=== PATIENT | male | born 1970 | race Caucasian/White ===

== ENCOUNTER 2023-01-28 07:06 | Outpatient (CLI) | payer OTHER, SELFPAY ==
--- NOTE | 2023-01-28 07:15 | MR_ITS ---
[address] [address] Phone:?[phone] Fax:?[phone] Referring Physician Information: Alen Garnett [address] [facility] [address] Phone:?[phone] Fax:?[phone] Patient:Ledy Grider D.O.B:?1970 Sex:?Male Phone:?[phone] [facility] MRN:?[id number] Exam Date:?01/28/2023 ? EXAM: MRI of the RIGHT KNEE, without contrast CLINICAL INFORMATION: Male, 52 years old, with medial right knee pain. INDICATION: Evaluate for MCL or meniscal tear. PRIOR SURGERY: None reported. PLAIN FILMS: Knee radiographs dated 12/11/2022. COMPARISONS: No prior MRIs available. TECHNICAL INFORMATION: Using a 1.5T MR scanner and a localizing surface coil: sagittals: PD, PDFS coronals: PD, T2FS axials: PD, PDFS SEDATION: None CONTRAST: None FINDINGS: Knee joint: Effusion: Mild-moderate right knee effusion. Popliteal cyst: A medium-sized, inferiorly leaking popliteal (Bajwa's) cyst. Loose bodies: None. Subcutaneous and extra-articular soft tissues: Moderate anterior subcutaneous soft tissue swelling extending from the patella to the tibial tubercle (sagittal PDFS series 6 image 15). Ligaments: ACL: Intact ACL anteromedial and posterolateral bundles, without sprain or tear. PCL: Intact PCL, without acute or chronic injury. MCL: Mild thickening involving the proximal one third of the superficial MCL, without MCL tear. LCL: Intact LCL, without injury. Posterolateral corner: No posterolateral corner soft tissue injury. Popliteus, biceps femoris, iliotibial band, popliteofibular ligament and lateral gastrocnemius are intact. Posteromedial corner: No posteromedial corner soft tissue injury. Semimembranosus, pes anserine tendons and posterior oblique ligament are without injury, tendinopathy or bursitis. Extensor mechanism: Patellar tendon: Intact, without tendinopathy. Quadriceps tendon: Intact, without tendinopathy. Retinacula: Medial and lateral retinacula are intact. Fat pads: Unremarkable infrapatellar Hoffa's, quadriceps and prefemoral fat pads. Medial compartment: Medial meniscus: Complex degenerative tearing of the posterior horn and body is present over a length of 3.6 cm(sagittal PDFS series 6 images 23-27 and coronal STIR series 8 images 16-24). Meniscal extrusion measures 4 mm. No parameniscal cyst. An 8 x 4 x 8 mm flap fragment is located superior to the periphery of the body segment (coronal STIR series 8 image 18 and axial T2FS series 4 image 20). Medial femoral condyle & tibial plateau: Broad-based grade III chondromalacia throughout the central, weightbearing aspect of the medial compartment, with mild marginal osteophytosis and reactive osseous changes. Lateral compartment: Lateral meniscus: No articular surface, meniscosynovial junction or root tear. No displacement, extrusion or parameniscal cyst. Lateral femoral condyle: Broad-based mild grade II chondromalacia along the posterior surface of the lateral femoral condyle, with minimal subchondral edema (sagittal PDFS series 6 image 10 and axial T2FS series 4 image 12). Lateral tibial plateau: No chondromalacia or osteochondral abnormality. Patellofemoral joint: Patella: Bipartite patella with mild reactive osseous changes along the synchondrosis. There is generalized grade II chondromalacia of the patella and minimal marginal osteophytosis. Trochlea: Broad-based grade II/III chondromalacia of the medial facet and central sulcus, with mild reactive osseous changes and marginal osteophytosis. Proximal tibiofibular joint: Unremarkable, without evidence of ligament sprain injury, joint effusion or adjacent marrow edema. Bones: No stress/occult fractures or other marrow edema/pathology. IMPRESSION: 1. Complex degenerative tearing of the posterior horn and body medial meniscus measuring 3.6 c with 4 mm of meniscal extrusion and an 8 x 4 x 8 mm flap fragment located superior to the periphery of the body segment. 2. Moderate osteoarthritis of the medial compartment. 3. Mild osteoarthritis of the patellofemoral compartment with a bipartite patella. 4. Mild chondromalacia involving the posterior surface of the lateral femoral condyle, with minimal reactive osseous changes. 5. Mild-moderate knee joint effusion with a medium-sized, inferiorly leaking Bajwa cyst and moderate anterior subcutaneous soft tissue edema. 6. Chronic sequela of a low-grade proximal MCL sprain, without tear. 7. No ACL, PCL, or LCL sprain/tear. No lateral meniscal tear. BC Electronically signed on 01/28/2023 10:38:00 AM by Rory Wilhelm M.D.
== END 2023-01-28 07:07 | disposition home or self-care (01) ==
PROVIDERS: PCP Family Medicine; Visit Provider Physician Assistant Surgical
DX: M25.561 Pain in right knee (principal); M23.221 Derangement of posterior horn of medial meniscus due to old tear or injury, right knee; M17.11 Unilateral primary osteoarthritis, right knee; M94.261 Chondromalacia, right knee; M71.21 Synovial cyst of popliteal space [Baker], right knee
CPT/HCPCS: 73721

== ENCOUNTER 2023-02-20 06:12 | Day surgery (SDC) | payer OTHER, SELFPAY ==
[2023-02-20] VITALS (10 sets, daily range): BP systolic 113–141; BP diastolic 70–96; PULSE 64–82; RESP 16; TEMP 36.1–37; O2SAT 94–97; BMI 37.3
[2023-02-20] MEDS: SODIUM CHLORIDE 0.9 % (FLUSH) 10 ML SYRINGE IVF (06:45)
[2023-02-20] MEDS: LACTATED RINGERS 1000 ML 1,000 ML 100 ML IV ×2 (06:45→08:32)
[2023-02-20] MEDS: CEFAZOLIN 2 GM INJ IVP (07:37)
[2023-02-20] MEDS: [UNRECOGNIZED DRUG - OTHER] INJECTION (08:02)
--- NOTE | 2023-02-20 08:26 | W.ANESCHARGE ---
Anesthesia Charges Start Date/Time Anesthesia Start Date: 02/20/23 Anesthesia Start Time: 07:32 Stop Date/Time Anesthesia Stop Date: 02/20/23 Anesthesia Stop Time: 08:46
--- NOTE | 2023-02-20 08:46 | W.ANESCHARGE ---
Anesthesia Charges Start Date/Time Anesthesia Start Date: 02/20/23 Anesthesia Start Time: 07:32 Stop Date/Time Anesthesia Stop Date: 02/20/23 Anesthesia Stop Time: 08:46
--- NOTE | 2023-02-20 11:35 | PM.ORPRC ---
Procedure Note Date of procedure: 02/20/23 Procedure: PREOPERATIVE DIAGNOSIS: 1. Right knee medial meniscus tear 2. Right knee chondromalacia POSTOPERATIVE DIAGNOSIS: 1. Right knee medial meniscus tear 2. Right knee chondromalacia PROCEDURE: 1. Right knee arthroscopic partial medial menisectomy SURGEON: Kraig Phillips M.D. HIGH [employer] PROFESSIONAL: Riana Bates P.A.-C. Of note, an mechanic assistant was critical for this case to aid in patient positioning, knee manipulation, instrument exchange, and closure. ANESTHESIA: Spinal EBL: 5 mL TOURNIQUET: 0 minutes COMPLICATIONS: None evident INDICATIONS: 52-year-old male with 3 month history of right knee pain and mechanical symptoms, which were not improving with conservative treatment. MRI of the right knee revealed complex tear of the posterior horn and body of the medial meniscus as well as some chondromalacia in the medial compartment. Due to failing nonoperative treatment. Patient is offered surgery consisting of arthroscopic partial medial meniscectomy. Prior to surgery risks and benefits were discussed with the patient questions were answered and informed consent was obtained. FINDINGS: Examination under anesthesia revealed full range of motion. Knee is stable to varus valgus stress or Warren's and posterior drawer tests were negative. Arthroscopic examination revealed complex degenerative tearing of the posterior horn and body of the medial meniscus. Posterior horn and anterior horn were intact. There was diffuse grade 3 chondromalacia of the medial femoral condyle medial tibial plateau. Grade 1 chondromalacia the lateral tibial plateau. Minimal chondromalacia noted in the patellofemoral compartment. ACL and PCL were intact. Lateral meniscus was intact. DESCRIPTION OF PROCEDURE: Operative site was marked preoperatively patient was brought to the operating room where spinal anesthesia was administered. Patient was then given 2 g IV Ancef for prophylaxis. Right lower extremity with was prepped and draped in usual sterile fashion. A surgical time-out was performed confirming patient identity surgical site surgical procedure. Anterolateral and anteromedial portals were injected with 0.25% bupivacaine with epinephrine. Anterolateral portal was then established. Anteromedial portal was established after localization with spinal needle. Diagnostic arthroscopy was performed with findings as noted above. Following the diagnostic arthroscopy, partial meniscectomy was performed using combination of motorized shaver and arthroscopic biters. Following partial meniscectomy, meniscus was probed and remnant meniscus was confirmed to be stable. Approximately 10-15% of the overall meniscus was resected, but of the portion that was worked on, approximately 40% of the depth was resected. Instruments were removed, excess fluid was drained, and closure performed with 4-0 Monocryl with Steri-Strips. Dressings were applied, and the patient was awoken from anesthesia and transferred to the PACU in stable condition. PLAN: 1. Weightbear as tolerated right lower extremity. 2. Ice, acetominophen and/or ibuprofen, and [place] for pain as needed. 3. Knee range of motion and quad sets/straight leg raise regularly 4. Follow up with me in 1-2 weeks for a wound check.
== END 2023-02-20 09:58 | disposition home or self-care (01) ==
PROVIDERS: PCP Family Medicine; Visit Provider Orthopaedic Surgery
PROC: (CPT 29870; principal; 2023-02-20 07:30)
DX: M23.221 Derangement of posterior horn of medial meniscus due to old tear or injury, right knee (principal); M94.261 Chondromalacia, right knee
CPT/HCPCS: 29881; 01400; J0690; J2250; J2405; J2704; J3010; J7120

== ENCOUNTER 2023-05-20 14:15 | Outpatient (RCR) | payer OTHER, SELFPAY | END 2023-07-21 15:28 | disposition home or self-care (01) | PROVIDERS: PCP Physician Assistant Surgical; Visit Provider Orthopaedic Surgery | DX: S89.91XA Unspecified injury of right lower leg, initial encounter (principal); M17.11 Unilateral primary osteoarthritis, right knee; Z98.890 Other specified postprocedural states; R26.9 Unspecified abnormalities of gait and mobility; R60.9 Edema, unspecified; Z51.89 Encounter for other specified aftercare | CPT/HCPCS: 97110; 97112; 97140; 97161 ==